=== PATIENT | male | born 1985 | race Two or more races ===

== ENCOUNTER 2021-11-04 11:36 | Emergency (ER) | payer OTHER ==
[~2021-11-04] VITALS: Ht 175.3 cm; Wt 68.0 kg
[2021-11-04] MEDS ORDERED: TRUVADA 100 MG1 EACH (12:56)
[2021-11-04] MEDS ORDERED: AMOX-CLAV 875-1 EACH PO (13:52)
[2021-11-04] MEDS ORDERED: MUPIROCIN1 G1 TOP (13:52)
== END 2021-11-04 13:56 | disposition home or self-care (01) ==
LOC: ER 11:36
DX: S60.021A Contusion of right index finger without damage to nail, initial encounter (principal); W22.8XXA Striking against or struck by other objects, initial encounter; Y93.89 Activity, other specified; Y92.89 Other specified places as the place of occurrence of the external cause